=== PATIENT | male | born 1980 | race Caucasian/White ===

== ENCOUNTER → 2016-11-29 | Outpatient (CLI) | payer OTHER ==
[~2016-11-29] MED LIST: ADVIN25/60 INH; ALBUAER19 INH; ATOR-24 PO; CARI350T28 PO; CARV3.122 PO; DIPH25CA65 PO; GABA800T2 PO; IBUP-1450 PO; LISI-729 PO; MULTTAB58 PO; OXYC-106 PO; OXYC1TAB3 PO; PRED20TA PO; PRED50TA PO; PRVHFAIN INH; SUMA100T16 PO
== END | disposition home or self-care (01) ==
LOC: C.RDSM 12:30
PROVIDERS: ATTEND Physical Medicine & Rehabilitation Sports Medicine
DX: S93.432S Sprain of tibiofibular ligament of left ankle, sequela (principal); X58.XXXS Exposure to other specified factors, sequela

== ENCOUNTER → 2016-12-30 | Day surgery (SDC) | payer OTHER ==
[2016-12-29 14:46] VITALS: Ht 175.3 cm; Wt 97.7 kg
[~2016-12-30] VITALS: Ht 175.3 cm; Wt 97.7 kg
[~2016-12-30] MED LIST changes: +ATROPINE SULFATE 0.1 MG/ML 5ML SYR IV PRN; +BUPIVACAINE/EPINEPHRINE 0.5% MPF 1:200,000 30 ML VIAL ONE; +CLINDAMYCIN PHOS 150 MG/ML 2 ML VIAL IV SCH; +DEXAMETHASONE SOD INJ 4 MG/ML VIAL IV PRN; +DEXAMETHASONE SOD INJ 4 MG/ML VIAL ONE; +EpHEDrine SULFATE INJ 50 MG/ML AMP IV PRN; +FENTANYL CITRATE INJ 50 MCG/1 ML 2 ML VIAL IV PRN; +FENTANYL CITRATE INJ 50 MCG/1 ML 2 ML VIAL ONE; +KETOROLAC TROMETHAMINE 30 MG/ML VIAL IV. PRN; +LABETALOL HCL IV 5 MG/ML 20ML IV PRN; +LACTATED RINGER'S 1000ML 1,000 ML IV SCH; +LIDOCAINE HCL 2% 2 ML VIAL (20MG/ML) ONE; +LIDOCAINE/EPINEPHRINE 1% INJ 50 ML VIAL ONE; +METOCLOPRAMIDE HCL INJ 5 MG/ML 2 ML VIAL IV PRN; +MIDAZOLAM HCL 1 MG/ML 2ML VIAL ONE; +MoRPHine SULFATE 10 MG/ML CARP/VIAL IV PRN; +MoRPHine SULFATE 2 MG/ML CARP IV PRN; +MoRPHine SULFATE 4 MG/ML 1 ML CARP\\VIAL IV PRN; +ONDANSETRON INJ 2 MG/ML 2 ML VIAL IV PRN; +ONDANSETRON INJ 2 MG/ML 2 ML VIAL ONE; -OXYC-106 PO; +OXYCODONE HCL IR 5 MG TAB (IMMEDIATE RELEASE) PO PRN; +PHENYLEPHRINE 100MCG/ML 5ML SYR IV PRN; +PROPOFOL IV EMULSION 10 MG/ML 20 ML VIAL IV ONE; +SODIUM CHLORIDE 0.9% 1000ML 1,000 ML IV SCH
--- NOTE | 2016-12-30 07:02 | History & Physical Bridge Note ---
H&P Re-Evaluation Bridge Note: I have examined the patient, reviewed the History & Physical and in the interval since the performance of the History & Physical I have noted the following changes of clinical significance: No changes noted
--- NOTE | 2016-12-30 07:50 | [facility] Post Operative Brief Note ---
Immediate Operative Summary Operative Date Dec 30, 2016. Pre-Operative Diagnosis Left Ankle Retained Hardware Pain Post-Operative Diagnosis Same Procedure(s) Performed Left Ankle Syndesmosis Screw Removal Surgeon Dr. Jones Conservator Artifacts Surgeon(s) Erin Randolph PA-C Estimated Blood Loss Minimal Findings loose syndesmosis screws Specimens None Anesthesia LMA Complication(s) None Disposition Recovery Room / PACU
--- NOTE | 2016-12-30 08:01 | Discharge Instructions-SurgCtr ---
Discharge Instructions Date of Service Dec 30, 2016. Visit Reason for Visit: Left Ankle S/P Orif Discharge Discharge Diagnosis / Problem: left ankle syndesmosis screw removal Discharge Goals Goal(s): Decrease discomfort, Improve function, Increase independence Activity Recommendations Activity Limitations: per Instructions/Follow-up section Anesthesia . Post Anesthesia Instructions: If you have had General Anesthesia or IV Sedation: * Do not drive today. * Resume driving when surgeon permits. * Do not make important decisions or sign legal documents today. * Call surgeon for: 1. Temperature elevations greater than 101 degrees F. 2. Uncontrollable pain. 3. Excessive bleeding. 4. Persistent nausea and vomiting. 5. Medication intolerance (nausea, vomiting or rash). * For nausea and vomiting use only clear liquids such as: tea, soda, bouillon until nausea subsides, then gradually increase diet as tolerated. * If you have any concerns or questions, call your surgeon's office. If physician is unavailable and it is an emergency, call 911 or go to the nearest emergency room. . Instructions / Follow-Up Instructions / Follow-Up DIET: * Resume previous diet. MEDICATIONS: * Please take your prescriptions as instructed at your pre-op appointment and/ or see medication discharge instructions listed above. * If concerns develop, call your physician's office at . SPECIAL CARE INSTRUCTIONS: * Ice/Elevate as instructed. * Keep dressing clean, dry, intact x 4 days, then may remove dressings and apply band-aid and ADRIANA bandage as needed. * You may put weight on left leg, use crutches to assist with ambulation until your follow up appointment. * Your surgical extremity may be discolored due to prepping agents used on the skin. A bluish-green tint is a normal variant and should not cause alarm. Call your doctor at [phone] if: * Temperature above 101 degrees * Pain not relieved by pain medicine ordered * There is increased drainage or redness from any incision * You have any unanswered questions, problems or concerns. FOLLOW UP VISIT: * If not already scheduled, please call the office at to schedule a follow-up appointment. Diet Recommendations Home Diet: no limitations, resume previous diet Procedures Procedures Performed: Left Ankle Syndesmosis Screw Removal Pending Studies Studies pending at discharge: no Medical Emergencies . Who to Call and When: Medical Emergencies: If at any time you feel your situation is an emergency, please call 911 immediately. . Non-Emergent Contact Non-Emergency issues call your: Primary Care Provider, Surgeon Call Non-Emergent contact if: temperature is above 101.5, your pain is not controlled, wound has increased drainage . . "Provider Documentation" section prepared by Yvette Randolph.
--- NOTE | 2016-12-30 08:08 | [facility] Operative Report ---
Operative Report Operative Date Dec 30, 2016. Pre-Operative Diagnosis Left Ankle Retained Hardware Pain Post-Operative Diagnosis left ankle retained hardware Procedure(s) Performed left ankle screw removal Surgeon Dr. Jones [facility] [facility] Hospital[facility] Surgeon(s) Yvette Randloph PA-C Estimated Blood Loss Minimal Findings left ankle retained hardware Specimens None Anesthesia LMA Complication(s) None Disposition Recovery Room / PACU (stable) Indications Patient is a 36 year old male, s/p ORIF left ankle fracture/syndesmotic disruption. X-rays taken, retained hardware confirmed. Discussed removal of hardware, he wished to proceed with removal. Risk/complications discussed, informed consent obtained. Description of Procedure Patient was taken to the operating room, given general anesthesia, given IV clindamycin for surgical prophylaxis. Time out performed, prepped and draped in routine sterile fashion. I was present the entire case, please see Dr. Jones's operative report for further detail. Patient was awakened and taken to the recovery room in stable condition. I attest to the content of the Intraoperative Record and any orders documented therein. Any exceptions are noted below.
--- NOTE | 2016-12-30 08:12 | OPERATIVE REPORT ---
DATE OF OPERATION: 12/30/2016 PREOPERATIVE DIAGNOSIS: Retained hardware, left ankle, status post open reduction internal fixation syndesmotic disruption secondary to a Maisonneuve fracture. SURGEON: Dr. Jones. VIDEO LIBRARY ASSISTANT: Yvette Randolph. No resident or fellow available. ANESTHESIA: Laryngeal mask anesthetic. INDICATIONS OF PROCEDURE: The patient is a 36-year-old male status post left ankle fracture. He has healed fracture and syndesmosis. He wishes to have the hardware removed. He also has Zqakiyf-Xiych-Skrul disease. PROCEDURE IN DETAIL: Informed consent was obtained. The patient identified as Dk Kent. He identified the operative site as the left ankle. I marked it with my initials. A preop surgical time out was performed. A preop dose of IV antibiotics was given. He was taken to the operating room, positioned supine on the operating room table. A box placed under the left hip and a tourniquet on the left calf distal to the peroneal nerve. The leg was prepped and draped in usual sterile fashion. The exam under anesthesia showed tightness of the heel cord foot deformity consisting of bertha toes and decreased range of motion secondary to his Scqgeyq-Kawuk-Dyhhs. The proximal screw was palpable. The drop down to the base is query. Fluoroscopic guidance was utilized. DVT prophylaxis is not indicated. Routine prep and drape was performed. The prior incision was opened as necessary approximately 3 cm. Electrocautery and blunt dissection utilized to identify the screw heads, which were exposed and then sequentially removed without difficulty. Fluoroscopic AP and lateral images show maintenance of reduction of syndesmosis, but complete hardware was removed. The medial clear space appears to be intact. The ankle was stressed medially and laterally and found not to have any obvious gross instability. Tourniquet was let down after about 20 minutes of inflation. Meticulous hemostasis was performed, irrigation was performed, curettage of the screw holes was done. Debridement with a rongeur some of the scar tissue was performed. Meticulous hemostasis. The skin was then closed with 3-0 nylon suture horizontal mattress stitches. A soft sterile dressing with an Lupillo wrap from the toes up to the lower calf was applied. Local anesthetic was injected at the conclusion of the operation around the incision. The patient was awakened from anesthesia without difficulty and taken to recovery in stable condition. There were no specimens or complications. Counts were correct at the end of case. Blood loss was minimal. At the conclusion of the operation, I spoke to patient's mother and informed her of my findings. Postoperative instructions were given. He can weightbear as tolerated. I attest to the content of the Intraoperative Record and any orders documented therein. Any exceptio ns are noted below.
--- NOTE | 2016-12-30 08:40 | Anesthesia Progress Nt - [facility] ---
Anesthesia Post Op Note Date & Time Dec 30, 2016 at 08:40 Vital Signs Pain Intensity: 2 Vital Signs Past 12 Hours Date Time Temp Pulse Resp B/P Pulse Ox O2 Delivery O2 Flow Rate FiO2 12/30/16 08:32 72 7 12/30/16 08:32 72 7 90 12/30/16 08:31 72 18 99 12/30/16 08:31 73 18 12/30/16 08:30 36.5 75 21 123/96 98 Room Air 12/30/16 08:30 123/96 12/30/16 08:26 74 22 12/30/16 08:26 74 22 129/42 98 12/30/16 08:21 72 23 12/30/16 08:21 72 23 100 12/30/16 08:20 126/60 12/30/16 08:16 70 18 12/30/16 08:16 70 18 99 12/30/16 08:15 119/80 12/30/16 08:11 70 12 111/80 100 12/30/16 08:11 71 12 12/30/16 08:06 72 22 100 12/30/16 08:06 72 22 12/30/16 08:05 117/63 12/30/16 08:01 77 12/30/16 08:01 77 136/54 100 12/30/16 08:01 37.3 77 14 136/54 99 Mask 6 12/30/16 06:29 36.3 73 18 146/93 96 Room Air Notes Mental Status: alert / awake / arousable, participated in evaluation Pt Amnestic to Procedure: Yes Nausea / Vomiting: adequately controlled Pain: adequately controlled Airway Patency, RR, SpO2: stable & adequate BP & HR: stable & adequate Hydration State: stable & adequate Anesthetic Complications: no major complications apparent
[2016-12-30 08:45] VITALS: TEMP 36.5
[2016-12-30 08:58] VITALS: BP 124/74; PULSE 77; O2SAT 98
== END | disposition home or self-care (01) ==
LOC: X.SURG 06:05
PROVIDERS: ATTEND Physical Medicine & Rehabilitation Sports Medicine
DX: T84.84XA Pain due to internal orthopedic prosthetic devices, implants and grafts, initial encounter (principal); Y83.1 Surgical operation with implant of artificial internal device as the cause of abnormal reaction of the patient, or of later complication, without mention of misadventure at the time of the procedure; F41.9 Anxiety disorder, unspecified; J45.909 Unspecified asthma, uncomplicated; G43.909 Migraine, unspecified, not intractable, without status migrainosus; M41.20 Other idiopathic scoliosis, site unspecified; I42.8 Other cardiomyopathies; K21.9 Gastro-esophageal reflux disease without esophagitis

== ENCOUNTER → 2017-02-14 | Outpatient (CLI) | payer OTHER ==
[~2017-02-14] MED LIST changes: -ATROPINE SULFATE 0.1 MG/ML 5ML SYR IV PRN; -BUPIVACAINE/EPINEPHRINE 0.5% MPF 1:200,000 30 ML VIAL ONE; -CARI350T28 PO; -CLINDAMYCIN PHOS 150 MG/ML 2 ML VIAL IV SCH; -DEXAMETHASONE SOD INJ 4 MG/ML VIAL IV PRN; -DEXAMETHASONE SOD INJ 4 MG/ML VIAL ONE; -EpHEDrine SULFATE INJ 50 MG/ML AMP IV PRN; -FENTANYL CITRATE INJ 50 MCG/1 ML 2 ML VIAL IV PRN; -FENTANYL CITRATE INJ 50 MCG/1 ML 2 ML VIAL ONE; -KETOROLAC TROMETHAMINE 30 MG/ML VIAL IV. PRN; -LABETALOL HCL IV 5 MG/ML 20ML IV PRN; -LACTATED RINGER'S 1000ML 1,000 ML IV SCH; -LIDOCAINE HCL 2% 2 ML VIAL (20MG/ML) ONE; -LIDOCAINE/EPINEPHRINE 1% INJ 50 ML VIAL ONE; -METOCLOPRAMIDE HCL INJ 5 MG/ML 2 ML VIAL IV PRN; -MIDAZOLAM HCL 1 MG/ML 2ML VIAL ONE; -MoRPHine SULFATE 10 MG/ML CARP/VIAL IV PRN; -MoRPHine SULFATE 2 MG/ML CARP IV PRN; -MoRPHine SULFATE 4 MG/ML 1 ML CARP\\VIAL IV PRN; -ONDANSETRON INJ 2 MG/ML 2 ML VIAL IV PRN; -ONDANSETRON INJ 2 MG/ML 2 ML VIAL ONE; -OXYCODONE HCL IR 5 MG TAB (IMMEDIATE RELEASE) PO PRN; -PHENYLEPHRINE 100MCG/ML 5ML SYR IV PRN; -PROPOFOL IV EMULSION 10 MG/ML 20 ML VIAL IV ONE; -SODIUM CHLORIDE 0.9% 1000ML 1,000 ML IV SCH
== END | disposition home or self-care (01) ==
LOC: C.RDSM 08:00
PROVIDERS: ATTEND Physical Medicine & Rehabilitation Sports Medicine
DX: S93.432S Sprain of tibiofibular ligament of left ankle, sequela (principal); X58.XXXS Exposure to other specified factors, sequela

== ENCOUNTER 2017-03-13 05:14 | Emergency (ER) | payer OTHER ==
[~2017-03-13] VITALS: Ht 175.3 cm; Wt 100.1 kg
[~2017-03-13 05:14] MED LIST changes: -DIPH25CA65 PO; -IBUP-1450 PO; -PRED20TA PO; -PRED50TA PO; -PRVHFAIN INH; -SUMA100T16 PO
[2017-03-13 05:19] VITALS: TEMP 36.5; Ht 175.3 cm; Wt 100.1 kg
[2017-03-13] MEDS ORDERED: ALBUT/IPRATROP 3MG/0.5MG NEB 3 ML VIAL INH STA (05:27)
[2017-03-13] MEDS ORDERED: FLUTICASONE/SALMETEROL (ADVAIR) 500/50 INH 14 PUFF INH ONE (05:30)
[2017-03-13] MEDS ORDERED: DEXAMETHASONE SOD INJ 10 MG/ML VIAL PO ONE (05:30)
[2017-03-13 05:35] VITALS: O2SAT 100
[2017-03-13] MEDS ORDERED: ALBUTEROL HFA 8 GM INHALER INH STA (05:42)
[2017-03-13] MEDS ORDERED: LORAZEPAM 1 MG TAB SL STA (05:42)
[2017-03-13] MEDS ORDERED: ATIVAN 1MG HOMEPACK ONE (05:55)
[2017-03-13] MEDS ORDERED: IBUP-1450 PO (06:04)
--- NOTE | 2017-03-13 06:04 | EMERGENCY ROOM VISIT NOTE ---
History First contact with patient: 05:23 Chief Complaint: RESPIRATORY PROBLEMS Stated Complaint: CAN'T BREATHE, ASTHMA Nursing Triage Summary: Pt complains of difficulty breathing since yesterday. Pt ran out of his inhaler. Hx asthma. History of Present Illness The patient is a 36 year old male who presents to the Emergency Room with complaints of cough, wheeze and anxiousness the past few days who is out of his asthma meds. Patient denies chest pain, fevers, productive cough, abdominal pain, leg pain or swelling, recent illness. He is tolerating by mouth fluids and food. Review of Systems See HPI for pertinent positives & negatives. A total of 10 systems reviewed and were otherwise negative. Past Medical/Surgical History Medical Problems: (1) Acute thoracic back pain (2) Anxiety (3) ASTHMA, UNSPECIFIED, W (ACUTE) EXACERBATION (4) Cardiomyopathy (5) Vyxndrv-Zzcgv-Hdeew disease (6) Chronic low back pain (7) Compression fracture of thoracic vertebra (8) Fracture, thoracic vertebra, compression (9) History of illicit drug abuse (10) Hypertension Nos (11) Idiopathic scoliosis (12) Leg pain, right (13) Leg pain, right (14) Marijuana use (15) MONONEURITIS NOS (16) Neuropathy (17) Osteoporosis Nos (18) Pain, dental (19) Puncture wound of right lower leg (20) Puncture wound of right lower leg (21) Scoliosis, Unspecified (22) Tobacco Use Disorder Surgical Problems: (1) History of orthopedic surgery Family History Hypertension Social History Smoking Status: Never Smoker Alcohol Use: occasionally Drug Use: none, marijuana Marital Status: single Occupation Status: disabled Current/Historical Medications Scheduled Atorvastatin (Lipitor), 40 MG PO QAM Carvedilol (Coreg), 3.125 MG PO BID Fluticasone Prop/Salmeterol (Advair Diskus 250/50 60 Dose), 1 PUFF INH BID Gabapentin (Neurontin), 800 MG PO QID Lisinopril (Zestril), 5 MG PO QAM Multiple Vitamin (Multivitamin), 1 TABLET PO QAM Scheduled PRN Albuterol Inhaler (Ventolin Inhaler), 2 PUFFS INH QID PRN for SOB/Wheezing Oxycodone Immediate Rel Tab (Roxicodone Ir), 1-2 TAB PO Q4H PRN for Severe Pain Allergies Coded Allergies: Acetaminophen (Verified Allergy, Mild, BRUSIED LIVER, 12/30/16) limited use Ibuprofen (Verified Allergy, Mild, BRUISED LIVER, 12/30/16) limited use Penicillins (Unverified Allergy, Mild, rash, 12/30/16) Hydrocodone (Verified Allergy, Unknown, itchy, rash, 12/30/16) Physical Exam Vital Signs Date Time Temp Pulse Resp B/P (MAP) Pulse Ox O2 Delivery O2 Flow Rate FiO2 03/13/17 05:35 100 Room Air 03/13/17 05:29 100 Room Air 03/13/17 05:19 94 Room Air 03/13/17 05:19 36.5 87 22 147/94 98 Room Air Physical Exam VITALS: Vitals are noted on the nurse's note and reviewed by myself. Vital signs stable. GENERAL: Pleasant male able to speak in full sentences with audible wheeze, appearing anxious, in no acute distress, nondiaphoretic, well-developed well- nourished. SKIN: The skin was without rashes, erythema, edema, or bruising. There is no tenting of the skin. Capillary reflex less than 2 seconds. HEAD: Normocephalic atraumatic. EARS: External auditory canals clear, tympanic membranes pearly carter without erythema or effusion bilaterally. EYES: Pupils equal round and reactive to light and accommodation. Conjunctivae without injection, sclerae without icterus. Extraocular movements intact. NOSE: Patent, turbinates without inflammation or discharge. No sinus tenderness. MOUTH: Mucous membranes moist. Pharynx without erythema or exudate. Uvula midline. Airway patent. Tongue does not deviate. NECK: Supple without nuchal rigidity. No lymphadenopathy. No thyromegaly. Cervical spine is nontender. No JVD. HEART: Regular rate and rhythm without murmurs gallops or rubs. LUNGS: Mild diffuse end expiratory wheezes, without rales or rhonchi. No dullness to percussion. No retractions or accessory muscle use. ABDOMEN: Positive bowel sounds x 4. Normal tympanic percussion. Soft, nontender, without masses or organomegaly. Lucero sign negative. No guarding or rebound tenderness. MUSCULOSKELETAL: No muscle atrophy, erythema, or edema noted. NEURO: Patient was alert and oriented to person place and time. Normal sensation to light and sharp touch. No focal neurological deficits. Medical Decision & Procedures Medications Administered Medications (Trade) Dose Ordered Sig/Abimbola Route Start Time Stop Time Status Last Admin Dose Admin Albuterol/ Ipratropium (Duoneb) 3 ml NOW STAT INH 03/13/17 05:27 03/13/17 05:29 DC 03/13/17 05:32 3 ML Salmeterol Xinafoate/ Fluticasone (Advair Diskus 500/50 Inh) 1 puff NOW ONCE INH 03/13/17 05:30 03/13/17 05:31 DC 03/13/17 05:56 1 PUFF Dexamethasone Sodium Phosphate (Decadron Inj) 10 mg NOW ONCE PO 03/13/17 05:30 03/13/17 05:31 DC 03/13/17 05:33 10 MG Albuterol (Ventolin Hfa Inhaler) 2 puffs ONE STAT INH 03/13/17 05:42 03/13/17 05:43 DC 03/13/17 05:56 2 PUFFS ED Course Prior records/ancillary studies reviewed. Triage Nursing notes reviewed. The patient's history was concerning for respiratory difficulties. Differential diagnosis: Etiologies such as infections, reactive airway disease, pneumonia, pneumothorax , COPD, CHF, cardiac ischemia, pulmonary embolism, musculoskeletal, gastrointestinal, as well as others were entertained. Physical examination: As above. ER treatment provided: Nebulizer, Decadron, Advair On reassessment the patient felt better. Diagnostic interpretation by me: Deferred. This appears to be consistent with an exacerbation. Patient felt much better after being medicated as above. Lungs are reassessed and improved. he is speaking in full sentences. he is advised follow-up family care in a few days or here in the ER sooner for difficulty breathing, fevers, chest pain, worsening signs or symptoms or as needed. Patient was not hypoxic. he was well -appearing. By the evaluation outlined above emergent etiologies such as CHF, cardiac ischemia, pulmonary embolism, pneumonia, pneumothorax, musculoskeletal , serious bacterial infections, as well as others were deemed relatively unlikely. The pt informed about the findings as listed above. All questions were answered and pleased with the treatment. Return instructions were outlined and the patient was discharged in stable condition. Outpatient prescription management: prednisone Referral: The patient was referred back to their primary care physician for follow-up in 2 to 3 days for a recheck of the current condition. case reviewed with my Attending Medical Decision As above Patient was found to have elevated blood pressure and was referred to their family doctor for recheck and further treatment. Medications were reviewed. Impression Primary Impression: ASTHMA, UNSPECIFIED, W (ACUTE) EXACERBATION Additional Impression: Anxiety Departure Information Dispostion Home / Self-Care Condition GOOD Referrals Elijah Sanford M.D. (PCP) Patient Instructions My [facility] Additional Instructions Albuterol Inhaler: Take 2 puffs four times daily for five days, then as needed. Prednisone 50mg: Once daily until the prescription is finished. It is best to take this earlier in the day as some patients note occasional difficulty falling asleep when taken in the late evening. Ativan 1 m tablet every 8 hours as needed for anxiety. No alcohol or driving on this medication. Acetaminophen(Tylenol) may be used for fever or pain. Use 1000mg every six hours as needed. Avoid using more than 3000mg in a 24 hour period. (AND/OR) Ibuprofen(Motrin, Advil) may be used for fever or pain. Use 600mg every six hours as needed. Take with food. Avoid using more than 2400mg in a 24 hour period. Do not use 2400mg per day for more than three consecutive days without physician direction. Prolonged inappropriate use can lead to stomach upset or ulcers. Rest and drink plenty of fluids. Avoid smoke/smoking, fumes, dust, or any triggers in the past that may have affected your breathing. Continue current medications. Return to the ER for chest pain, difficulty breathing, fevers, vomiting, worsening of your condition, or as needed. Follow up with your primary physician this week for a recheck of your current condition. Problem Qualifiers
[2017-03-13] MEDS ORDERED: PRED50TA PO (06:06)
[2017-03-13 06:10] VITALS: BP 150/79; PULSE 85; O2SAT 99
[2017-03-13] MEDS ORDERED: ATIVAN 1MG HOMEPACK PO ONE (06:15)
== END 2017-03-13 06:10 | disposition home or self-care (01) ==
LOC: C.EDB 05:15 → C.EDA 06:10
DX: J45.901 Unspecified asthma with (acute) exacerbation (principal); F41.9 Anxiety disorder, unspecified; I10 Essential (primary) hypertension; M41.20 Other idiopathic scoliosis, site unspecified; M81.0 Age-related osteoporosis without current pathological fracture; G62.9 Polyneuropathy, unspecified; G58.9 Mononeuropathy, unspecified; F19.90 Other psychoactive substance use, unspecified, uncomplicated; F12.90 Cannabis use, unspecified, uncomplicated; Z82.49 Family history of ischemic heart disease and other diseases of the circulatory system; Z79.899 Other long term (current) drug therapy

== ENCOUNTER 2017-05-07 04:31 | Emergency (ER) | payer OTHER ==
[~2017-05-07] VITALS: Ht 175.3 cm; Wt 101.2 kg
[~2017-05-07 04:31] MED LIST changes: +IBUP-1450 PO; -OXYC1TAB3 PO
[2017-05-07 04:36] VITALS: TEMP 36.4; Ht 175.3 cm; Wt 101.2 kg
[2017-05-07] MEDS ORDERED: ALBUT/IPRATROP 3MG/0.5MG NEB 3 ML VIAL ONE (04:43)
[2017-05-07] MEDS ORDERED: LORAZEPAM 0.5 MG TAB SL STA ×2 (04:43→06:29)
[2017-05-07] MEDS ORDERED: ALBUT/IPRATROP 3MG/0.5MG NEB 3 ML VIAL INH STA (04:44)
--- NOTE | 2017-05-07 04:54 | EMERGENCY ROOM VISIT NOTE ---
History Report prepared by Edilia: [employer] Under the Supervision of: Dr. Stephanie Santiago D.O. First contact with patient: 04:39 Chief Complaint: RESPIRATORY PROBLEMS Stated Complaint: CAN'T BREATHE,ASTHMA History of Present Illness The patient is a 37 year old male who presents to the Emergency Room with complaints of a worsening shortness of breath that started yesterday. The patient admits that the dyspnea is worsened with laying down and slightly relieved with sitting up. He reports that he was working in his garage yesterday and dusting. The patient reports that later that night he started to experience dyspnea and could not fall asleep. He states that his symptoms worsened today and he started to experience dizziness. He also reports experiencing a cough with clear sputum. The patient reports that he has a history of asthma since and seasonal allergies, which are worse this year. He states that he usually has Albuterol and a rescue inhaler, but reports that he ran out of his rescue inhaler. The patient admits that he has had asthma attacks in the past, including one incident of hospitalization five years ago. He states that when he has asthma attacks, he usually is given anxiety medication and Prednisone. The patient states that he had a breathing test performed last month, but denies any results found. He admits to a history of scoliosis. The patient denies sore throat, rhinorrhea, fevers, and chills. Source of History: patient Onset: yesterday Position: other (global) Quality: other (SOB) Timing: worsening Modifying Factors (Worsening): other (laying down) Modifying Factors (Relieving): other (sitting up) Associated Symptoms: No fevers, No chills, No sorethroat Review of Systems See HPI for pertinent positives & negatives. A total of 10 systems reviewed and were otherwise negative. Past Medical & Surgical Medical Problems: (1) Acute thoracic back pain (2) Anxiety (3) ASTHMA, UNSPECIFIED, W (ACUTE) EXACERBATION (4) Cardiomyopathy (5) Zhumphv-Avrls-Myobl disease (6) Chronic low back pain (7) Compression fracture of thoracic vertebra (8) Fracture, thoracic vertebra, compression (9) History of illicit drug abuse (10) Hypertension Nos (11) Idiopathic scoliosis (12) Leg pain, right (13) Leg pain, right (14) Marijuana use (15) MONONEURITIS NOS (16) Neuropathy (17) Osteoporosis Nos (18) Pain, dental (19) Puncture wound of right lower leg (20) Puncture wound of right lower leg (21) Scoliosis, Unspecified (22) Tobacco Use Disorder Surgical Problems: (1) History of orthopedic surgery Family History Hypertension Social History Smoking Status: Never Smoker Alcohol Use: occasionally Drug Use: none, marijuana Marital Status: single Occupation Status: disabled Current/Historical Medications Scheduled Albuterol (Ventolin Hfa), 2 PUFFS INH QID Atorvastatin (Lipitor), 40 MG PO QPM Carvedilol (Coreg), 3.125 MG PO BID Diphenhydramine Hcl (Benadryl Allergy), 100 MG PO DAILY Fluticasone Prop/Salmeterol (Advair Diskus 250/50 60 Dose), 1 PUFF INH BID Gabapentin (Neurontin), 800 MG PO QID Lisinopril (Zestril), 10 MG PO QAM Multiple Vitamin (Multivitamin), 1 TABLET PO QAM Prednisone (Prednisone), 0 PO DAILY Sumatriptan Succinate (Imitrex), 100 MG PO PRN Scheduled PRN Albuterol Inhaler (Ventolin Inhaler), 2 PUFFS INH QID PRN for SOB/Wheezing Ibuprofen (Motrin), 200-600 MG PO DIRECTED PRN for Pain Allergies Coded Allergies: Acetaminophen (Verified Allergy, Mild, BRUSIED LIVER, 05/07/17) limited use Ibuprofen (Verified Allergy, Mild, BRUISED LIVER, 05/07/17) limited use Penicillins (Unverified Allergy, Mild, rash, 05/07/17) Hydrocodone (Verified Allergy, Unknown, itchy, rash, 05/07/17) Physical Exam Vital Signs Date Time Temp Pulse Resp B/P (MAP) Pulse Ox O2 Delivery O2 Flow Rate FiO2 05/07/17 06:45 94 22 96 05/07/17 06:35 97 18 92 05/07/17 06:30 139/59 05/07/17 06:25 91 17 93 05/07/17 06:15 95 20 92 05/07/17 06:05 87 19 92 05/07/17 06:00 122/62 05/07/17 05:55 84 17 88 05/07/17 05:45 85 20 99 05/07/17 05:35 85 15 100 05/07/17 05:30 88 16 137/106 99 05/07/17 05:21 93 18 136/99 95 05/07/17 05:12 88 23 94 Room Air 05/07/17 05:02 92 20 138/119 05/07/17 04:36 36.4 92 30 123/57 94 Room Air Physical Exam GENERAL: appears uncomfortable, alert, well appearing, well nourished, no distress, non-toxic EYE EXAM: normal conjunctiva, PERRL and EOM's grossly intact OROPHARYNX: no exudate, no erythema, lips, buccal mucosa, and tongue normal and mucous membranes are moist NECK: supple, no nuchal rigidity, no adenopathy, non-tender LUNGS: Diminished sounds. Clear to auscultation. Normal chest wall mechanics. No wheezes, rhonchi, rales. HEART: no murmurs, S1 normal and S2 normal ABDOMEN: abdomen soft, non-tender, normo-active bowel sounds, no masses, no rebound or guarding. BACK: Back is symmetrical on inspection and there is no deformity, no midline tenderness, no CVA tenderness. Obvious kyphoscoliosis. SKIN: no rashes and no bruising UPPER EXTREMITIES: upper extremities are grossly normal. LOWER EXTREMITIES: No pitting edema. NEURO EXAM: Able to ambulate, normal gait. Normal sensorium, cranial nerves II- XII grossly intact, normal speech, no gross weakness of arms, no gross weakness of legs. Gross sensation intact. Medical Decision & Procedures ER Provider Diagnostic Interpretation: XRAY: A chest one view study was reviewed: CHEST XRAY: No cardiomegaly. No effusion. No wide mediastinum. No focal infiltrate. No pneumothorax. Medications Administered Medications (Trade) Dose Ordered Sig/Abimbola Route Start Time Stop Time Status Last Admin Dose Admin Albuterol/ Ipratropium (Duoneb) 3 ml STK-MED ONCE .ROUTE 05/07/17 04:43 05/07/17 04:44 DC 05/07/17 04:45 3 ML Lorazepam (Ativan Tab) 0.5 mg NOW STAT SL 05/07/17 04:43 05/07/17 04:44 DC 05/07/17 04:59 0.5 MG Prednisone (PredniSONE TAB) 60 mg NOW STAT PO 05/07/17 04:43 05/07/17 04:45 DC 05/07/17 04:59 60 MG Albuterol/ Ipratropium (Duoneb) 12 ml ONE ONCE INH 05/07/17 05:00 05/07/17 05:01 DC 05/07/17 05:12 12 ML Albuterol (Ventolin Hfa Inhaler) 2 puffs NOW ONCE INH 05/07/17 06:15 05/07/17 06:16 DC 05/07/17 06:45 60 PUFFS Lorazepam (Ativan Tab) 0.5 mg NOW STAT SL 05/07/17 06:29 05/07/17 06:30 DC 05/07/17 06:46 0.5 MG ED Course 0438: The patient was evaluated in room B02. A complete history and physical exam was performed. 0443: Prednisone 60 mg PO, Lorazepam 0.5 mg SL, Duoneb 3 ml INH. 0500: Duoneb 12 ml INH. 0544: I reevaluated the patient and he is resting comfortably. He is taking deeper breaths and is doing well. 0615: Albuterol 2 puffs INH. 0629: Ativan Tab 0.5 mg SL. 0637: Upon reevaluation, the patient is feeling better. I discussed the findings and the treatment plan with the patient. He verbalizes agreement and understanding. The patient was discharged home. Medical Decision Differential diagnoses includes but is not limited to pneumonia, bronchitis, COPD/Asthma exacerbation, pneumothorax, pulmonary embolism, congestive heart failure, acute coronary syndrome Patient improved here following hour-long nebulizer treatment. Patient with long-standing history of asthma, recently ran out of his rescue inhaler, and was exposed to additional irritants which could've exacerbated his asthma. No evidence of pneumothorax, no history or evidence on chest x-ray of pneumonia or effusion. Patient with no other cardiac history to suggest congestive heart failure or ACS. Patient improved here, discussed steroids, rescue inhaler, his controller inhaler, follow up with his family doctor, symptoms to watch and return for, he verbalized understanding was agreeable with plan. Patient not hypoxic at all here, felt markedly improved and was ambulatory without any increased work of breathing or respiratory distress prior to discharge. Medication Reconcilliation Current Medication List: was personally reviewed by me Blood Pressure Screening Patient's blood pressure: Elevated blood pressure Blood pressure disposition: Elevated BP felt to be situational Impression Primary Impression: ASTHMA, UNSPECIFIED, W (ACUTE) EXACERBATION Scribe Attestation The scribe's documentation has been prepared under my direction and personally reviewed by me in its entirety. I confirm that the note above accurately reflects all work, treatment, procedures, and medical decision making performed by me. Departure Information Dispostion Home / Self-Care Prescriptions Albuterol (Ventolin Hfa) 60 Puffs/5400 Mcg Aers 2 PUFFS INH QID for SOB/Wheezing, #1 INHALER Prov: Stephanie Santiago, DO 05/07/17 Prednisone (Prednisone) 20 Mg Tab 0 PO DAILY for 5 Days, #11 TAB 3 TABS DAILY FOR 2 DAYS, THEN 2 TABS DAILY FOR 2 DAYS, THEN 1 TAB DAILY FOR 1 DAYS. Prov: Stephanie Santiago, DO 05/07/17 Referrals Elijah Sanford M.D. (PCP) Forms HOME CARE DOCUMENTATION FORM, IMPORTANT VISIT INFORMATION, WORK / SCHOOL INSTRUCTIONS Patient Instructions My [facility] Additional Instructions Please take the steroids as prescribed at home. Please keep your rescue inhaler with you at all times. Once you finish the prednisone then take your inhaled steroid daily as prescribed. Please avoid any potential triggers for asthma including allergies, extremes of temperature, dust and dander, fumes and chemicals. If you have any increasing or worsening asthma symptoms, develop worsening cough, fevers, vomiting, chest pain, dizziness, or you have any other new concerns, please return the emergency room.
[2017-05-07] MEDS ORDERED: ALBUT/IPRATROP 3MG/0.5MG NEB 3 ML VIAL INH ONE (05:00)
[2017-05-07] MEDS ORDERED: SUMA100T16 PO (05:06)
[2017-05-07] MEDS ORDERED: DIPH25CA65 PO (05:08)
[2017-05-07 05:12] VITALS: PULSE 88; O2SAT 94
[2017-05-07] MEDS ORDERED: ALBUTEROL HFA 8 GM INHALER INH ONE (06:15)
[2017-05-07 06:30] VITALS: BP 139/59
[2017-05-07] MEDS ORDERED: PRED20TA PO (06:32)
[2017-05-07] MEDS ORDERED: PRVHFAIN INH (06:33)
[2017-05-07 06:45] VITALS: PULSE 94; O2SAT 96
[2017-05-07] MEDS ORDERED: EMPTY 8 DRAM VIAL ONE (06:51)
--- NOTE | 2017-05-07 07:57 | DIAGNOSTIC IMAGING REPORT ---
CHEST ONE VIEW PORTABLE CLINICAL HISTORY: Shortness of breath COMPARISON STUDY: 10/31/2013 FINDINGS: The cardiac and mediastinal contours are normal. There is no evidence of focal pulmonary consolidation. There is no evidence of failure. No pleural effusions are visualized.[ IMPRESSION: No active disease in the chest. Electronically signed by: Fausto Kelley M.D. 05/07/2017 7:56 AM Dictated Date/Time: 05/07/2017 7:56 AM
== END 2017-05-07 06:49 | disposition home or self-care (01) ==
LOC: C.EDB 04:32
DX: J45.901 Unspecified asthma with (acute) exacerbation (principal); R42 Dizziness and giddiness; M41.9 Scoliosis, unspecified; I42.9 Cardiomyopathy, unspecified; I10 Essential (primary) hypertension; G60.0 Hereditary motor and sensory neuropathy; M81.0 Age-related osteoporosis without current pathological fracture; Z98.890 Other specified postprocedural states; Z82.49 Family history of ischemic heart disease and other diseases of the circulatory system; Z79.899 Other long term (current) drug therapy

== ENCOUNTER 2017-09-21 10:55 | Emergency (ER) | payer OTHER ==
[~2017-09-21] VITALS: Ht 180.3 cm; Wt 104.2 kg
[~2017-09-21 10:55] MED LIST changes: +DIPH25CA65 PO; +PRVHFAIN INH; +SUMA100T16 PO
[2017-09-21 11:06] VITALS: TEMP 36.7; Ht 180.3 cm; Wt 104.2 kg
[2017-09-21] MEDS ORDERED: IBUP1CAP9 PO (11:33)
[2017-09-21] MEDS ORDERED: ACET-1256 PO (11:33)
[2017-09-21] MEDS ORDERED: TRAMADOL HCL 50 MG TAB PO STA (11:48)
--- NOTE | 2017-09-21 11:49 | EMERGENCY ROOM VISIT NOTE ---
History Report prepared by Edilia: Bonita Christensen Under the Supervision of: Dr. Kin Benito M.D. First contact with patient: 11:24 Chief Complaint: BACK PAIN Stated Complaint: LOWER BACK PAIN. BOTH FEET HURT History of Present Illness The patient is a 37 year old white male with a past medical history of Neuropathy, scoliosis, osteoporosis, chronic low back pain, compression fracture , pinched nerves, who presents to the ED with a cc of worsening lower back pain beginning yesterday. Positive bilateral feet pain. Negative bowel or bladder incontinence. He currently rates his discomfort as a 10/10 in severity. The patient describes his pain as a sharp pain. He states that yesterday he was cutting firewood and states that he felt a pop. The patient states that coughing worsens his pain. He reports recreational marijuana use. The patient reports that he does back exercises and stretches. Source of History: patient Onset: yesterday Position: back (lower) Symptom Intensity: 10/10 Quality: sharp Timing: worsening Modifying Factors (Worsening): other (coughing) Note: Associated Symptoms: bilateral feet pain Review of Systems See HPI for pertinent positives and negatives. A total of ten systems were reviewed and were otherwise negative. Past Medical & Surgical Medical Problems: (1) Acute thoracic back pain (2) Anxiety (3) ASTHMA, UNSPECIFIED, W (ACUTE) EXACERBATION (4) Cardiomyopathy (5) Qlxshtr-Oumvg-Qagrw disease (6) Chronic low back pain (7) Compression fracture of thoracic vertebra (8) Fracture, thoracic vertebra, compression (9) History of illicit drug abuse (10) Hypertension Nos (11) Idiopathic scoliosis (12) Leg pain, right (13) Leg pain, right (14) Marijuana use (15) MONONEURITIS NOS (16) Neuropathy (17) Osteoporosis Nos (18) Pain, dental (19) Puncture wound of right lower leg (20) Puncture wound of right lower leg (21) Scoliosis, Unspecified (22) Tobacco Use Disorder Surgical Problems: (1) History of orthopedic surgery Family History Heart disease Hypertension Social History Smoking Status: Current Every Day Smoker Alcohol Use: none Drug Use: marijuana Marital Status: single Occupation Status: disabled Current/Historical Medications Scheduled Acetaminophen (Tylenol), 1,000 MG PO DIRECTED Albuterol (Ventolin Hfa), 2 PUFFS INH QID Atorvastatin (Lipitor), 40 MG PO QPM Carvedilol (Coreg), 3.125 MG PO BID Diphenhydramine Hcl (Benadryl Allergy), 100 MG PO DAILY Fluticasone Prop/Salmeterol (Advair Diskus 250/50 60 Dose), 1 PUFF INH BID Gabapentin (Neurontin), 800 MG PO QID Ibuprofen (Ibuprofen), 800 MG PO DIRECTED Lisinopril (Zestril), 10 MG PO QAM Methylprednisolone (Medrol Dosepak), 1 DOSE PO DAILY Multiple Vitamin (Multivitamin), 1 TABLET PO QAM Scheduled PRN Ibuprofen (Motrin), 200-600 MG PO DIRECTED PRN for Pain Oxycodone Immediate Rel Tab (Roxicodone Ir), 5 MG PO Q6H PRN for Pain Allergies Coded Allergies: Acetaminophen (Verified Allergy, Mild, BRUSIED LIVER, 05/07/17) limited use Ibuprofen (Verified Allergy, Mild, BRUISED LIVER, 05/07/17) limited use Penicillins (Unverified Allergy, Mild, rash, 05/07/17) Hydrocodone (Verified Allergy, Unknown, itchy, rash, 05/07/17) Physical Exam Vital Signs Date Time Temp Pulse Resp B/P (MAP) Pulse Ox O2 Delivery O2 Flow Rate FiO2 09/21/17 13:45 88 18 146/66 99 09/21/17 11:06 36.7 92 18 145/75 99 Room Air Physical Exam GENERAL: Awake, alert, well-appearing, NAD HENT: Normocephalic, atraumatic. Poor dentition. EYES: Normal conjunctiva. Sclera non-icteric. NECK: Supple. No nuchal rigidity. FROM. RESPIRATORY: CTAB, no rhonchi, wheezing, crackles CARDIAC: RRR, no MRG ABDOMEN: Soft, NTND, BS+ BACK: lumbar midline and paraspinal tenderness to palpation MSK: No chest wall TTP, no LE edema, Surgical scars right lower extremity, Negative straight leg raise, bilaterally, negative travis test NEURO: GCS 15, CN 2-12 intact, moves all 4s on command, No saddle anesthesia SKIN: No rash or jaundice noted. Medical Decision & Procedures ER Provider Diagnostic Interpretation: X-ray: Per my interpretation, radiologist review. LUMBAR SPINE 2 OR 3 VIEWS CLINICAL HISTORY: Low back pain. History of scoliosis. COMPARISON STUDY: CT scan dated 12/17/2012 FINDINGS: There is a thoracolumbar levoscoliosis. No fractures or subluxations are visualized. There is a nonspecific 3 mm calcification projected over the right renal shadow IMPRESSION: 1. Mild scoliosis 2. No fractures or subluxations identified 3. Possible 3 mm right renal calculus Electronically signed by: Fausto Kelley M.D. 09/21/2017 12:20 PM Dictated Date/Time: 09/21/2017 12:19 PM Medications Administered Medications (Trade) Dose Ordered Sig/Abimbola Route Start Time Stop Time Status Last Admin Dose Admin Dexamethasone Sodium Phosphate (Dexamethasone Inj Pf) 10 mg NOW ONCE IM 09/21/17 12:00 09/21/17 12:01 DC 09/21/17 11:57 10 MG Tramadol HCl (Ultram Tab) 50 mg NOW STAT PO 09/21/17 11:48 09/21/17 11:50 DC 09/21/17 12:03 50 MG ECG Indication: back/shoulder pain Rate (beats per minute): 85 Rhythm: normal sinus Findings: T-wave inversion (lead 3), left axis deviation, other (normal intervals, no other STS changes or TWI) ED Course 1142: The patient was evaluated in room C5. A complete history and physical exam was performed. 1243: I reevaluated the patient and he is resting more comfortably. I discussed the test results with him and I discussed the treatment plan. He verbalized complete understanding and agreement. He is ready to go home. Medical Decision Differential diagnosis: Etiologies such as musculoskeletal, disc herniation, fracture, aortic disease, metastatic disease, cord compression, discitis, infection, renal colic, gastrointestinal, acute exacerbation of chronic back pain, sciatica, cauda equina, as well as others were entertained. The patient is a 37 year old white male with a past medical history of Neuropathy, scoliosis, osteoporosis, chronic low back pain, compression fracture , pinched nerves, who presents to the ED with a cc of worsening lower back pain beginning yesterday. Patient was seen and evaluated the bedside. 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 Patient did state he was chopping some wood and possibly was when he heard a pop and felt a discomfort in his lower back. Patient denies any saddle anesthesia, numbness, or tingling. Patient does have some chronic neuropathy of his lower extremities but nothing is acute. Patient denies any bowel or bladder incontinence or retention. Patient had negative straight leg raise and negative Travis test. Patient did have some reproducible pain to the lower back. Patient denies any IV drug abuse, weight loss, history of cancer. Patient did have plain films that were completed which did not show any acute fracture or subluxation. Patient does have some scoliosis noted intrarenal calculi. Patient was given some pain medication which she states improved his discomfort. Given the patient's history this sounds like a herniated disc given the recent injury and the fact that this is exacerbated with increased intrathoracic pressure as noted by worsening pain cough or sneezing. Patient was given steroids. I'm was given warning signs for which to return. Patient was told to cough or sneeze with his mouth open. Patient was told to follow-up with his PCP to discuss physical therapy, injections, and/or referral to a specialist. Patient was given strict follow-up, discharge, and return precautions. All questions were answered. Patient was deemed suitable for outpatient follow-up at this time. Patient agreed with the plan of care and was safely discharged home. Medication Reconcilliation Current Medication List: was personally reviewed by me Blood Pressure Screening Patient's blood pressure: Elevated blood pressure Blood pressure disposition: Elevated BP felt to be situational, Did not require urgent referral Impression Primary Impression: Lumbar pain Additional Impressions: Herniated disc Strain of lumbar region Scribe Attestation The scribe's documentation has been prepared under my direction and personally reviewed by me in its entirety. I confirm that the note above accurately reflects all work, treatment, procedures, and medical decision making performed by me. Departure Information Dispostion Home / Self-Care Prescriptions Oxycodone Immediate Rel Tab (ROXICODONE IR) 5 Mg Tab 5 MG PO Q6H Y for Pain, #12 TAB Prov: Kin Benito M.D. 09/21/17 Methylprednisolone (MEDROL DOSEPAK) 4 Mg Jordon 1 DOSE PO DAILY, #1 PKT Prov: Kin Benito M.D. 09/21/17 Referrals Elijah Sanford M.D. (PCP) Forms HOME CARE DOCUMENTATION FORM, IMPORTANT VISIT INFORMATION Patient Instructions Back Pain - [facility], Back Pain Relieve, ED Disk Intervertebral Herniated, My [facility] Additional Instructions Please return to the emergency department if you have worsening or recurrent symptoms not amenable to at-home treatment. Please call for a follow-up appointment with her primary care physician. Please take your medications as prescribed. If you have other concerns and/or complaints please feel free to also call your primary care physician's office or return the ED for further evaluation, management, and treatment. You may take tylenol 1000 mg every 6 hours as needed for pain. Take your steroids preferably in the morning and with food and or an antacid as it may cause upset stomach. If you have persistent pain issues please follow-up with your PCP discuss further pain control, physical therapy, and/or specialist need. Take your medications as prescribed. You have been examined and treated today on an emergency basis only. This is not a substitute for, or an effort to provide, complete comprehensive medical care. It is impossible to recognize and treat all injuries or illnesses in a single emergency department visit. It is therefore important that you follow up closely with [facility], your PCP, and/or your specialist(s). Call as soon as possible for an appointment. Thank you for your time and consideration. I look forward to speaking with you again soon. Please don't hesitate to call us if you have any questions. Problem Qualifiers Additional Impressions: Herniated disc Spinal region: lumbar Qualified Codes: M51.26 - Other intervertebral disc displacement, lumbar region Strain of lumbar region Encounter type: initial encounter Qualified Codes: S39.012A - Strain of muscle, fascia and tendon of lower back, initial encounter
[2017-09-21] MEDS ORDERED: DEXAMETHASONE **PF** INJ 10 MG/ML VIAL IM ONE (12:00)
[2017-09-21] MEDS ORDERED: EMPTY 8 DRAM VIAL ONE (12:01)
--- NOTE | 2017-09-21 12:21 | DIAGNOSTIC IMAGING REPORT ---
LUMBAR SPINE 2 OR 3 VIEWS CLINICAL HISTORY: Low back pain. History of scoliosis. COMPARISON STUDY: CT scan dated 12/17/2012 FINDINGS: There is a thoracolumbar levoscoliosis. No fractures or subluxations are visualized. There is a nonspecific 3 mm calcification projected over the right renal shadow IMPRESSION: 1. Mild scoliosis 2. No fractures or subluxations identified 3. Possible 3 mm right renal calculus Electronically signed by: Fausto Kelley M.D. 09/21/2017 12:20 PM Dictated Date/Time: 09/21/2017 12:19 PM
[2017-09-21] MEDS ORDERED: OXYC1TAB3 PO (12:57)
[2017-09-21] MEDS ORDERED: METH4PAK PO (12:57)
[2017-09-21 13:45] VITALS: BP 146/66; PULSE 88; O2SAT 99
== END 2017-09-21 13:15 | disposition home or self-care (01) ==
LOC: C.EDB 10:56 → C.EDC 13:15
DX: M51.26 Other intervertebral disc displacement, lumbar region (principal); S39.012A Strain of muscle, fascia and tendon of lower back, initial encounter; X58.XXXA Exposure to other specified factors, initial encounter; Y93.89 Activity, other specified; Y99.8 Other external cause status; J45.909 Unspecified asthma, uncomplicated; M81.0 Age-related osteoporosis without current pathological fracture; I10 Essential (primary) hypertension; F17.200 Nicotine dependence, unspecified, uncomplicated; Z98.890 Other specified postprocedural states; Z82.49 Family history of ischemic heart disease and other diseases of the circulatory system; Z79.899 Other long term (current) drug therapy